=== PATIENT | male | born 1985 | race Two or more races ===

== ENCOUNTER 2018-09-12 16:42 | Emergency (ER) | payer SELFPAY ==
[~2018-09-12] VITALS: Ht 162.6 cm; Wt 83.9 kg
[2018-09-12] MEDS ORDERED: NAPROXEN 500 MG TABLET PO STA (17:43)
[2018-09-12] MEDS ORDERED: CYCLOBENZAPRINE 10 MG TABLET. PO ONE (17:45)
[2018-09-12] MEDS ORDERED: HYDROcodone/APAP 5/325MG 1 TAB TABLET PO ONE (17:45)
--- NOTE | 2018-09-12 17:45 | PHYS DOC ---
Adult General Chief Complaint Chief Complaint: MECHANICAL FALL HPI HPI Patient is a 33 year old male who presents to be evaluated status post falling. Patient states he was walking down 6 steps when he slid and fell. Patient denies any loss of consciousness. He is also complaining of moderate pain to the left lateral ribs, left elbow, left hand. He is also complaining of slight pain to the left lateral neck. Patient denies any back pain, denies any hematuria. He states most of his pain is sharp and constant worse on range of motion (AKIN BENITEZ APRN) Review of Systems Review of Systems Constitutional: Denies fever or chills [] Eyes: Denies change in visual acuity, redness, or eye pain [] HENT: Denies nasal congestion or sore throat [] Respiratory: Denies cough or shortness of breath [] Cardiovascular: No additional information not addressed in HPI [] GI: Denies abdominal pain, nausea, vomiting, bloody stools or diarrhea [] : Denies dysuria or hematuria [] Musculoskeletal: Reports left lateral neck pain, left hand pain, double pain, left lateral rib pain. Integument: Denies rash or skin lesions [] Neurologic: Denies headache, focal weakness or sensory changes [] All other systems were reviewed and found to be within normal limits, except as documented in this note. (AKIN BENITEZ APRN) Current Medications Current Medications Current Medications Medications (Trade) Dose Ordered Sig/Ramses Start Time Stop Time Status Last Admin Dose Admin Acetaminophen/ Hydrocodone Bitart (Lortab 5/325) 2 tab 1X ONCE 09/12/18 17:45 09/12/18 18:00 DC 09/12/18 18:25 2 TAB Cyclobenzaprine HCl (Flexeril) 10 mg 1X ONCE 09/12/18 17:45 09/12/18 18:00 DC 09/12/18 18:24 10 MG Naproxen (Naprosyn) 500 mg 1X STAT 09/12/18 17:43 09/12/18 17:44 UNV (EUGENE VAZQUEZ MD) Allergies Allergies Allergies Coded Allergies Type Severity Reaction Last Updated Verified naproxen Allergy Intermediate welts 09/12/18 Yes Sulfa (Sulfonamide Antibiotics) Allergy Mild 09/12/18 Yes (EUGENE VAZQUEZ MD) Physical Exam Physical Exam Constitutional: Well developed, well nourished, no acute distress, non-toxic appearance. [] HENT: Normocephalic, atraumatic, bilateral external ears normal, oropharynx moist, no oral exudates, nose normal. [] Eyes: PERRLA, EOMI, conjunctiva normal, no discharge. [] Neck: Normal range of motion, slight paraspinal muscle tenderness the left lateral cervical spine, no midline cervical spine tenderness, supple, no stridor. [] Cardiovascular:Heart rate regular rhythm, no murmur [] Lungs & Thorax: Bilateral breath sounds clear to auscultation, tenderness on palpation of the left lateral ribs mid axillary line approximately ribs 6 through 8. Abdomen: Bowel sounds normal, soft, no tenderness, no masses, no pulsatile masses. [] Skin: Warm, dry, no erythema, no rash. [] Back: No tenderness, no CVA tenderness. [] Extremities: Left elbow with bruising, tenderness on palpation of the left olecranon process, tenderness on palpation of the left hand dorsal aspect along the ring finger and pinky finger metacarpals. Full range of motion to the left hand and fingers. Adequate radial, medial, ulnar sensation to the left hand. +2 left radial pulse. Neurologic: Alert and oriented X 3, normal motor function, normal sensory function, no focal deficits noted. Cranial nerves II through XII intact Psychologic: Affect normal, judgement normal, mood normal. [] (AKIN BENITEZ APRN) Current Patient Data Vital Signs Vital Signs Date Time Temp Pulse Resp B/P (MAP) Pulse Ox O2 Delivery O2 Flow Rate FiO2 09/12/18 18:25 20 98 Room Air 09/12/18 17:59 98.9 113 132/105 (114) 98.9 (EUGENE VAZQUEZ MD) Lab Values Laboratory Tests Test 09/12/18 18:20 Urine Collection Type Unknown Urine Color Yellow Urine Clarity Clear Urine pH 6.5 Urine Specific [place] 1.025 Urine Protein 30 mg/dL (NEG-TRACE) Urine Glucose (UA) Negative mg/dL (NEG) Urine Ketones (Stick) Negative mg/dL (NEG) Urine Blood Small (NEG) Urine Nitrite Negative (NEG) Urine Bilirubin Negative (NEG) Urine Urobilinogen Dipstick 1.0 mg/dL (0.2 mg/dL) Urine Leukocyte Esterase Negative (NEG) Urine RBC 3-5 /HPF (0-2) Urine WBC 1-4 /HPF (0-4) Urine Bacteria 0 /HPF (0-FEW) Urine Mucus Mod /LPF (EUGENE VAZQUEZ MD) Lab Values Laboratory Tests Test 09/12/18 18:20 Urine Collection Type Unknown Urine Color Yellow Urine Clarity Clear Urine pH 6.5 Urine Specific [place] 1.025 Urine Protein 30 mg/dL (NEG-TRACE) Urine Glucose (UA) Negative mg/dL (NEG) Urine Ketones (Stick) Negative mg/dL (NEG) Urine Blood Small (NEG) Urine Nitrite Negative (NEG) Urine Bilirubin Negative (NEG) Urine Urobilinogen Dipstick 1.0 mg/dL (0.2 mg/dL) Urine Leukocyte Esterase Negative (NEG) Urine RBC 3-5 /HPF (0-2) Urine WBC 1-4 /HPF (0-4) Urine Bacteria 0 /HPF (0-FEW) Urine Mucus Mod /LPF (AKIN BENITEZ APRN) EKG EKG [] (AKIN BENITEZ APRN) Radiology/Procedures Radiology/Procedures [] (AKIN BENITEZ APRN) Course & Med Decision Making Course & Med Decision Making Pertinent Labs and Imaging studies reviewed. (See chart for details) This is a 33-year-old male patient presenting to the ED today to be evaluated status post falling down 6 steps. Has no back pain. Complaining of a slight left lateral neck pain, left hand pain, left elbow pain and left lateral rib pain. No loss of consciousness. CT of the cervical spine is negative for any acute findings, left hand x-ray, left elbow x-ray, left lateral rib x-rays including PA chest are negative for any acute findings. Patient was discharged with cyclobenzaprine. Ice and elevation encouraged. Tylenol recommended for pain. He is allergic to naproxen. Follow-up with PCP in one week. (AKIN BENITEZ APRN) Course & Med Decision Making Staff Physician Addendum: I was working in the ER during the course of this patient's visit. I was available for consultation as needed, but I was not directly involved in the care of this patient. (EUGENE VAZQUEZ MD) Dragon Disclaimer Dragon Disclaimer This electronic medical record was generated, in whole or in part, using a voice recognition dictation system. (AKIN BENITEZ APRN) Departure Departure Impression: Primary Impression: Fall down steps Additional Impressions: Contusion of rib on left side Left elbow contusion Sprain of left hand Disposition: 01 HOME, SELF-CARE Condition: STABLE Referrals: NO PCP (PCP) Follow-up with your doctor in 1-2 weeks Patient Instructions: Contusion, [id number], Fall Prevention and Home Safety Additional Instructions: You were evaluated in the emergency room after falling. Your CT of the neck is negative for any acute findings, your x-rays of the ribs, left hand, and left elbow are negative for any acute findings. Try to ice and elevate the affected areas. Take the prescribed medications as needed for pain. You can also take Tylenol as needed for pain. Follow-up with your doctor in 1-2 weeks. Scripts Cyclobenzaprine Hcl (CYCLOBENZAPRINE HCL) 10 Mg Tablet 1 TAB PO TID, #30 TAB Prov: AKIN BENITEZ APRN 09/12/18 Problem Qualifiers Primary Impression: Fall down steps Encounter type: initial encounter Qualified Codes: W10.8XXA - Fall (on) ( from) other stairs and steps, initial encounter Additional Impressions: Contusion of rib on left side Encounter type: initial encounter Qualified Codes: S20.212A - Contusion of left front wall of thorax, initial encounter Left elbow contusion Encounter type: initial encounter Qualified Codes: S50.02XA - Contusion of left elbow, initial encounter Sprain of left hand Encounter type: initial encounter Qualified Codes: S63.92XA - Sprain of unspecified part of left wrist and hand, initial encounter AKIN BENITEZ APRN Sep 12, 2018 17:45 EUGENE VAZQUEZ MD Sep 12, 2018 21:53
[2018-09-12 17:59] VITALS: BP 132/105
--- NOTE | 2018-09-12 18:31 | RAD ---
PQRS Compliance statement: One or more of the following individualized dose reduction techniques were utilized for this examination: 1. Automated exposure control. 2. Adjustment of the mA and/or kV according to patient size. 3. Use of iterative reconstruction technique. Indication:FALL DOWN STAIRS NO PREV TECHNIQUE: CT of the cervical spine without IV contrast with multiplanar reformats. COMPARISON:None FINDINGS: Cervical spine is in normal anatomic alignment. Atlantoaxial joint interval is preserved. No compression deformity. Facet joints are in normal anatomic alignment. No acute fractures. Noncontrast appearance of the neck soft tissue is within normal limits. No significant degenerative disc disease. IMPRESSION: No acute fractures. Electronically signed by: Vernon Bright DO (09/12/2018 6:28 PM) [facility]
[2018-09-12 18:41] LABS: BILIRUBIN,URINE NEGATIVE (NEG); CLARITY,URINE CLEAR; COLOR,URINE YELLOW; NITRITE,URINE NEGATIVE (NEG); PH,URINE 6.5; PROTEIN,URINE 30 mg/dL (NEG-TRACE)
[2018-09-12 18:48] LABS: BACTERIA,URINE 0 /HPF (0-FEW)
[2018-09-12] MEDS ORDERED: CYCL10TA2 PO (20:01)
--- NOTE | 2018-09-12 21:12 | RAD ---
Indication: Trauma Left elbow pain TECHNIQUE: 2 views of the left elbow COMPARISON: None Findings/ impression: No acute fracture or dislocation. No joint effusion. Electronically signed by: Vernon Bright DO (09/12/2018 9:09 PM) [facility]
--- NOTE | 2018-09-12 21:14 | RAD ---
Indication:ER PATIENT TRAUMA FALL TODAY. PAIN IN THE LEFT HAND TECHNIQUE: 3 views of left hand COMPARISON:None FINDINGS/ impression: No acute fracture or dislocation. No soft tissue abnormality. Electronically signed by: Vernon Bright DO (09/12/2018 9:11 PM) [facility]
--- NOTE | 2018-09-12 21:16 | RAD ---
Indication:,. Left rib pain TECHNIQUE: PA chest and multiple views of the left ribs COMPARISON: None FINDINGS: Heart is normal in size. Lungs are clear. No pneumothorax or effusion. No acute fractures. IMPRESSION: No acute findings. Electronically signed by: Vernon Bright DO (09/12/2018 9:13 PM) [facility]
== END 2018-09-12 20:05 | disposition home or self-care (01) ==
LOC: ER 16:42
DX: S63.592A Other specified sprain of left wrist, initial encounter (principal); S50.02XA Contusion of left elbow, initial encounter; S20.212A Contusion of left front wall of thorax, initial encounter; M54.2 Cervicalgia; Z88.8 Allergy status to other drugs, medicaments and biological substances; Z88.2 Allergy status to sulfonamides; W10.8XXA Fall (on) (from) other stairs and steps, initial encounter; Y93.01 Activity, walking, marching and hiking; Y92.89 Other specified places as the place of occurrence of the external cause; Y99.8 Other external cause status
CPT/HCPCS: 71101; 72125; 73070; 73130; 81001; 99284-25